=== PATIENT | male | born 1985 | race Caucasian/White ===

== ENCOUNTER 2016-10-04 21:53 | Emergency (ER) | payer SELFPAY ==
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
== END 2016-10-04 22:35 | disposition home or self-care (01) ==
LOC: ER 21:53
PROC: 0HQ1XZZ Repair Face Skin, External Approach (ICD-10-PCS; principal; 2016-10-04)
DX: S01.81XA Laceration without foreign body of other part of head, initial encounter (principal); S60.511A Abrasion of right hand, initial encounter; V89.9XXA Person injured in unspecified vehicle accident, initial encounter